=== PATIENT | male | born 1950 | race Two or more races ===

== ENCOUNTER 2016-05-13 12:38 | Day surgery (SDC) | payer MEDICARE, OTHER ==
[~2016-05-13] VITALS: Ht 170.2 cm; Wt 88.4 kg
[2016-05-13] MEDS ORDERED: TYLENOL (13:23)
[2016-05-13] MEDS ORDERED: OMEPRAZOLE (13:23)
[2016-05-13] MEDS ORDERED: ASPIRIN (13:23)
[2016-05-13] MEDS ORDERED: BENAZEPRIL (13:23)
[2016-05-13] MEDS ORDERED: SIMVASTATIN (13:23)
[2016-05-13 13:41] VITALS: Ht 170.2 cm; Wt 88.4 kg
[2016-05-13 14:06] VITALS: BP 152/86; PULSE 99; RESP 18
[2016-05-13] MEDS ORDERED: PROPOFOL 20 ML ONE (14:15)
[2016-05-13] MEDS ORDERED: FENTAnyl 50 MCG/ML VIAL ONE (14:15)
[2016-05-13] MEDS ORDERED: MIDAZOLAM 1 MG/ML 2 ML INJ ONE ×2 (14:15→14:16)
[2016-05-13 15:29] VITALS: BP 129/86; RESP 20
--- NOTE | 2016-05-13 17:57 | GILP ---
DATE OF PROCEDURE: 05/13/2016 NAME OF PROCEDURES: 1. Esophagogastroduodenoscopy and biopsy. 2. Colonoscopy and biopsy. SURGEON: Azul Hart MD PREOPERATIVE DIAGNOSES: 1. Chronic heartburn. 2. Screening colonoscopy. POSTOPERATIVE DIAGNOSES: 1. Gastroesophageal reflux disease. 2. Gastritis with erosions. 3. Gastric mucosal biopsies were taken for Helicobacter pylori test. 4. Colonoscopy all the way to the cecum. 5. Three small colon polyps were removed using the biopsy forceps. 6. Diverticulosis of the colon. 7. Internal hemorrhoids. INDICATION FOR THE PROCEDURE: Mr. Bryant Israel is a 65-year-old male patient who had chronic heartbu rn, not responding to therapy. Patient also needed screening colonoscopy. The procedures and possible complications are well explained to the patient. The patient understood and consented to the procedure. DESCRIPTION OF PROCEDURE: Under the influence of anesthesia, the gastroscope was carefully introduc ed into the esophagus and under direct vision, it was advanced to the stomach and through the pyloru s into the duodenal bulb and descending duodenum. FINDINGS: ESOPHAGUS: The patient had gastroesophageal reflux disease. STOMACH: The patient had gastritis. Gastric mucosal biopsies were taken for H. pylori test. DUODENUM: Normal. The colonoscope was carefully introduced in the rectum and under direct vision, it was advanced all the way to the cecum. FINDINGS: The patient had 3 small colon polyps and they were removed using the biopsy forceps. He was noted to have diverticulosis of the colon. He also had internal hemorrhoids. He tolerated the procedures very well and there was no complication from the procedures. At the end of the procedures, he was awake with stable vital signs and he was discharged home to the care of h is family. IMPRESSION: Please see postoperative diagnoses. PLAN: 1. Continue omeprazole. 2. Add Zantac 300 mg p.o. at bedtime. 3. Await histopathology reports. 4. Screening colonoscopy in 5 years. Dictated By: AZUL ALCANTARA/HUBER Conf#: [id number] DID#: [id number]
== END 2016-05-13 15:46 | disposition home or self-care (01) ==
LOC: GIL 12:38
PROVIDERS: ATTEND Internal Medicine Gastroenterology
DX: Z12.11 Encounter for screening for malignant neoplasm of colon (principal); D12.3 Benign neoplasm of transverse colon; K29.60 Other gastritis without bleeding; K57.90 Diverticulosis of intestine, part unspecified, without perforation or abscess without bleeding; K64.8 Other hemorrhoids; I10 Essential (primary) hypertension; E66.9 Obesity, unspecified; Z68.30 Body mass index [BMI] 30.0-30.9, adult
CPT/HCPCS: 43239; 45380; 87081; 88305; J2250; J3010

== ENCOUNTER 2018-04-08 19:41 | Inpatient (IN) | END 2018-04-13 17:00 | disposition home health service (06) | DRG 494 ==

== ENCOUNTER 2018-06-12 15:11 | Emergency (ER) | payer MEDICARE, OTHER ==
[~2018-06-12] VITALS: Ht 175.3 cm; Wt 86.0 kg
[~2018-06-12 15:11] MED LIST: ACET325T33 PO; ASPIRIN; BENAZEPRIL; DOCU-216 PO; HYDR-3609 PO; OMEPRAZOLE; SIMVASTATIN; TYLENOL
[2018-06-12 15:17] VITALS: Ht 175.3 cm; Wt 86.0 kg
[2018-06-12 19:23] VITALS: BP 135/85; PULSE 90; RESP 16
[2018-06-12] MEDS ORDERED: traMADol 50 MG TAB PO ONE (19:30)
--- NOTE | 2018-06-12 20:08 | ERD ---
ER Documentation Chief Complaint Chief Complaint RT FOOT SWELLING , SURG IN Mar HPI 67-year-old male history of pilon fracture right ankle treated with ORIF ambulatory to the ED complaining of pain and swelling of his right foot and ankle that started after the pins were removed on May 31 and has not im proved. Pain is sharp, and nonradiating. No relieving or exacerbating factors. Denies calf pain or swelling. No chest pain, palpitations or shortness of breath. No fevers or chills. ROS All systems reviewed and are negative except as per history of present illness. Medications Home Meds Active Scripts Tramadol HCl (Tramadol HCl) 50 Mg Tablet, 50 MG PO Q8, #8 TAB Prov:EVA HOLDEN MD 06/12/18 Docusate Sodium (Dok) 100 Mg Capsule, 100 MG PO Q12H PRN for CONSTIPATION for 1 Day, CAP Prov:JENN RAJAN MD 04/13/18 Hydrocodone/Acetaminophen (Hydrocodone-Acetamin 10-325 mg) 1 Each Tablet, 1 TAB PO Q4H PRN for MODERATE PAIN LEVEL 4-6 for 5 Days, TAB Prov:JENN RAJAN MD 04/13/18 Acetaminophen* (Tylenol*) 325 Mg Tablet, 650 MG PO Q6H PRN for PAIN LEVEL 1-3 OR FEVER for 1 Day, TAB Prov:JENN RAJAN MD 04/13/18 Reported Medications [Tylenol] No Conflict Check 05/13/16 [Aspirin] No Conflict Check 05/13/16 [Simvastatin] No Conflict Check 05/13/16 [Omeprazole] No Conflict Check 05/13/16 [Benazepril] No Conflict Check 05/13/16 Allergies Allergies: Coded Allergies: No Known Allergy (Unverified , 05/13/16) PMhx/Soc Reviewed in chart. As per HPI. History of Surgery: Yes (RIGHT FOOT) Anesthesia Reaction: No Hx Neurological Disorder: No Hx Respiratory Disorders: No Hx Cardiac Disorders: Yes (HTN ) Hx Psychiatric Problems: No Hx Miscellaneous Medical Probl: No Hx Alcohol Use: No Hx Substance Use: No Hx Tobacco Use: No Smoking Status: Never smoker FmHx No family history relevant to presenting complaint Physical Exam Vitals Vital Signs Date Temp Pulse Resp B/P (MAP) Pulse Ox O2 O2 Flow FiO2 Time Delivery Rate 06/12/18 97.4 90 16 135/85 96 Room Air 19:23 (102) 06/12/18 98.2 112 18 180/93 99 15:17 (122) Physical Exam Const: Mild distress due to pain Head: Atraumatic Eyes: Normal Conjunctiva ENT: Normal External Ears, Nose and Mouth. Neck: Full range of motion. No meningismus. Resp: Clear to auscultation bilaterally Cardio: Regular rate and rhythm, no murmurs Abd: Soft, non tender, non distended. Normal bowel sounds Skin: No petechiae or rashes Back: No midline or flank tenderness Ext: Right ankle: Mild foot and ankle swelling and tenderness. No erythema, induration or crepitus. No discharge. No calf erythema, swelling or tenderness. Range of motion of the ankle is diminished but distal pulses and sensation are intact. Neur: Awake and alert Psych: Normal Mood and Affect Results 24 hrs Current Medications Medications Dose Sig/Jordy Start Time Status Last (Trade) Ordered Route PRN Stop Time Admin Dose Reason Admin Tramadol 50 mg ONCE ONCE 06/12/18 DC 06/12/18 HCl PO 19:30 19:42 (Ultram) 06/12/18 19:31 Procedures/MDM DOCUMENTS REVIEWED: ED nurse, prior ED, prior records MEDICAL DECISION MAKIN-year-old male history of pilon fracture right ankle treated with ORIF ambulatory to the ED complaining of pain and swelling of his right foot and ankle that started after the pins were removed on May 31 and has not improved. No calf pain, tenderness or signs of DVT. No signs of cellulitis or postoperative infection although osteomyelitis considered. No indication at this time for labs or imaging studies. Discussed with orthopedics, Dr. Bravo; recommends discharge with analgesics and urgent outpatient follow-up. Presentation consistent with postoperative pain. Stable for discharge with precautionary instructions, appropriate analgesics and outpatient follow-up as counseled. Counseled patient regarding diagnostic workup, diagnosis and need for followup. Understands to return to ED if symptoms recur, worsen or any other concerns. Departure Diagnosis: Primary Impression: Postoperative pain of extremity Additional Impression: Status post ORIF of fracture of ankle Condition: Stable EVA HOLDEN MD Jun 12, 2018 20:08
[2018-06-12] MEDS ORDERED: TRAM50TA2 PO (20:14)
== END 2018-06-12 21:18 | disposition home or self-care (01) ==
LOC: E/R 15:11
DX: G89.18 Other acute postprocedural pain (principal); I10 Essential (primary) hypertension; Z47.2 Encounter for removal of internal fixation device
CPT/HCPCS: 99283